=== PATIENT | female | born 1980 | race Hispanic/Latino ===

== ENCOUNTER 2021-01-11 12:29 | Emergency (ER) | payer BC ==
--- NOTE | 2021-01-11 15:24 | ER ---
Nurse's Notes [facility] Name: Marga Tovar Age: 40 yrs Sex: Female : 1980 Arrival Date: 01/11/2021 Time: 12:30 Bed DIS2 Private MD: Diagnosis: Acute upper respiratory infection, unspecified Presentation: 01/11 12:51 Chief complaint: Patient states: LOONEY, cough, body aches since 01/06. S.O. is covid ll1 positive. Would like to be checked. Took antibiotic for 5 days, feels better overall. Coronavirus screen: Client denies travel out of the [place] in the last 14 days. cough unrelated to allergies, diarrhea, headache, shaking with chills, Client presents with at least one sign or symptom that may indicate coronavirus-19. Standard/surgical mask placed on the client. Ebola Screen: Patient denies travel to an Ebola-affected area in the 21 days before illness onset. Initial Sepsis Screen: Does the patient meet any 2 criteria? No. Patient's initial sepsis screen is negative. Does the patient have a suspected source of infection? Yes: Productive cough/pneumonia. Risk Assessment: Do you want to hurt yourself or someone else? Patient reports no desire to harm self or others. Onset of symptoms was January 06, 2021. 12:51 Method Of Arrival: Ambulatory ll1 12:51 Acuity: CODY 4 ll1 Historical: - Allergies: 12:50 No Known Allergies; ll1 - PMHx: 12:50 None; ll1 - PSHx: 12:50 None; ll1 - Immunization history:: Flu vaccine is not up to date. - Social history:: Smoking status: Patient/guardian denies using tobacco, the patient reports quitting approximately 10 years ago. Screenin:38 Abuse screen: Denies threats or abuse. Nutritional screening: No deficits noted. vg1 Tuberculosis screening: No symptoms or risk factors identified. Fall Risk No fall in past 12 months (0 pts). No secondary diagnosis (0 pts). No IV (0 pts). Ambulatory Aid- None/Bed Rest/Nurse Assist (0 pts). Gait- Normal/Bed Rest/Wheelchair (0 pts) Mental Status- Oriented to own ability (0 pts). Total Gómez Fall Scale indicates No Risk (0-24 pts). Assessment: 14:35 General: Appears in no apparent distress. comfortable, Behavior is calm, cooperative. vg1 Pain: Denies pain. Neuro: Level of Consciousness is awake, alert, obeys commands, Oriented to person, place, time, situation. Cardiovascular: Patient's skin is warm and dry. Respiratory: Reports cough that is dry, Airway is patent Respiratory effort is even, unlabored, Breath sounds are clear bilaterally. GI: No signs and/or symptoms were reported involving the gastrointestinal system. : No signs and/or symptoms were reported regarding the genitourinary system. EENT: No signs and/or symptoms were reported regarding the EENT system. Derm: Skin is intact, is healthy with good turgor. Musculoskeletal: Circulation, motion, and sensation intact. Vital Signs: 12:51 BP 140 / 103; Pulse 75; Resp 17; Temp 97.0; Pulse Ox 100% ; Weight 58.51 kg; Height 5 ll1 ft. 4 in. (162.56 cm); Pain 0/10; 14:38 BP 143 / 99; Pulse 80; Resp 14; Pulse Ox 100% on R/A; vg1 12:51 Body Mass Index 22.14 (58.51 kg, 162.56 cm) ll1 ED Course: 12:30 Patient arrived in ED. bp1 12:49 Arm band placed on. ll1 12:54 Triage completed. ll1 14:14 Josh Mckeon NP is PHCP. pm1 14:14 Usama Gallegos MD is Attending Physician. pm1 14:15 Nanda Sutherland, RN is Primary Nurse. vg1 14:39 Patient has correct armband on for positive identification. Bed in low position. Call vg1 light in reach. Side rails up X 1. 15:13 COVID swab sent to lab. Flu and/or RSV swab sent to lab. Strep swab sent to lab. vg1 15:28 No provider procedures requiring assistance completed. Patient did not have IV access vg1 during this emergency room visit. Administered Medications: No medications were administered Outcome: 15:23 Discharge ordered by . pm1 15:28 Discharged to home ambulatory. vg1 15:28 Condition: stable 15:28 Discharge instructions given to patient, Instructed on discharge instructions, follow up and referral plans. Demonstrated understanding of instructions, follow-up care. 15:28 Patient left the ED. vg1 Signatures: Josh Mckeon, CERTIFIED MARINE MECHANIC CERTIFIED MARINE MECHANIC pm1 Nanda Sutherland, RN RN vg1 Leonidas Ortiz RN RN ll1 Yumi Landry bp1
--- NOTE | 2021-01-11 15:24 | EDPHYS ---
Physician Documentation [facility] Name: Marga Tovar Age: 40 yrs Sex: Female : 1980 Arrival Date: 01/11/2021 Time: 12:30 Bed DIS2 Private MD: ED Physician Usama Gallegos HPI: 01/11 14:40 This 40 yrs old Female presents to ER via Ambulatory with complaints of pm1 Headache, Cough, Body Ache. 14:40 The patient or guardian reports cough, headache, and body aches. Onset: The pm1 symptoms/episode began/occurred 6 day(s) ago. Severity of symptoms: in the emergency department the symptoms are unchanged. Associated signs and symptoms: Pertinent negatives: chest pain, diarrhea, sore throat, vomiting, shortness of breath. Patient was seen at [place] [facility] and tested for COVID without any symptoms. She got tested at that time because her significant other tested positive for COVID. Her flu and COVID test were negative. She was prescribed and completed a prescription of antibiotics for 5 days to prevent a possible infection. She is here today to get tested again for COVID because she started having symptoms of headache, cough, and body aches after testing negative for COVID while asymptomatic. Historical: - Allergies: 12:50 No Known Allergies; ll1 - PMHx: 12:50 None; ll1 - PSHx: 12:50 None; ll1 - Immunization history:: Flu vaccine is not up to date. - Social history:: Smoking status: Patient/guardian denies using tobacco, the patient reports quitting approximately 10 years ago. ROS: 14:40 Eyes: Negative for injury, pain, redness, and discharge, ENT: Negative for injury, pm1 pain, and discharge, Neck: Negative for injury, pain, and swelling, Cardiovascular: Negative for chest pain, palpitations, and edema. 14:40 Abdomen/GI: Negative for abdominal pain, nausea, vomiting, diarrhea, and constipation, Back: Negative for injury and pain, MS/Extremity: Negative for injury and deformity, Skin: Negative for injury, rash, and discoloration. 14:40 Constitutional: Positive for body aches, Negative for fever, poor PO intake. 14:40 Respiratory: Positive for cough, Negative for shortness of breath. 14:40 Neuro: Positive for headache, Negative for numbness, tingling. Exam: 14:40 Constitutional: This is a well developed, well nourished patient who is awake, alert, pm1 and in no acute distress. Head/Face: Normocephalic, atraumatic. 14:40 Neck: Trachea midline, no thyromegaly or masses palpated, and no cervical lymphadenopathy. Supple, full range of motion without nuchal rigidity, or vertebral point tenderness. No Meningismus. 14:40 Back: No spinal tenderness. No costovertebral tenderness. Full range of motion. Skin: Warm, dry with normal turgor. Normal color with no rashes, no lesions, and no evidence of cellulitis. MS/ Extremity: Pulses equal, no cyanosis. Neurovascular intact. Full, normal range of motion. 14:40 Eyes: Exam is negative for acute changes, Periorbital structures: appear normal, Pupils: no acute changes, Extraocular movements: intact throughout, Conjunctiva: normal, no acute changes, Sclera: no acute changes, icterus, is not appreciated, Lids and lashes: no acute changes. 14:40 ENT: External ear(s): are unremarkable, Ear canal(s): are normal, TM's: no acute changes, Mouth: Lips: normal, Oral mucosa: normal, pink and intact, moist, Posterior pharynx: Airway: no evidence of obstruction, Tonsils: are normal in appearance, no enlargement, no erythema, no exudate, no ulcerations, erythema, that is mild, peritonsillar mass, is not appreciated, pooling of secretions, is not appreciated. 14:40 Cardiovascular: Rate: normal, Rhythm: regular, Pulses: no pulse deficits are appreciated, Edema: is not appreciated. 14:40 Respiratory: Exam negative for acute changes, respiratory distress, shortness of breath, Breath sounds: are clear throughout. 14:40 Abdomen/GI: Inspection: abdomen appears normal, Palpation: abdomen is soft and non-tender. 14:40 Neuro: Orientation: is normal, Mentation: is normal, Motor: is normal, moves all fours, Sensation: is normal, no obvious gross deficits, Gait: is steady, at a normal pace, without difficulty. Vital Signs: 12:51 BP 140 / 103; Pulse 75; Resp 17; Temp 97.0; Pulse Ox 100% ; Weight 58.51 kg; Height 5 ll1 ft. 4 in. (162.56 cm); Pain 0/10; 14:38 BP 143 / 99; Pulse 80; Resp 14; Pulse Ox 100% on R/A; vg1 12:51 Body Mass Index 22.14 (58.51 kg, 162.56 cm) ll1 MDM: 14:38 Patient medically screened. pm1 15:23 Data reviewed: vital signs. Data interpreted: Pulse oximetry: on room air is 100 %. pm1 Interpretation: normal. Counseling: I had a detailed discussion with the patient and/or guardian regarding: the historical points, exam findings, and any diagnostic results supporting the discharge/admit diagnosis, the need for outpatient follow up, to return to the emergency department if symptoms worsen or persist or if there are any questions or concerns that arise at home. 01/11 14:39 Order name: Strep; Complete Time: 15:56 pm1 01/11 14:39 Order name: Droplet/Contact Precautions; Complete Time: 15:13 pm1 01/11 14:39 Order name: Labs collected and sent; Complete Time: 15:13 pm1 01/11 14:39 Order name: O2 Per Protocol; Complete Time: 15:13 pm1 Administered Medications: No medications were administered Disposition: 16:12 Co-signature as Attending Physician, Usama Gallegos MD. rn Disposition: 01/11/21 15:23 Discharged to Home. Impression: Acute upper respiratory infection, unspecified. - Condition is Stable. - Discharge Instructions: Antibiotic Resistance, Upper Respiratory Infection, Adult, COVID-19. - Medication Reconciliation Form, Thank You Letter, Antibiotic Education, Prescription Opioid Use form. - Follow up: Emergency Department; When: As needed; Reason: Worsening of condition. Follow up: Private Physician; When: 2 - 3 days; Reason: Recheck today's complaints, Continuance of care, Re-evaluation by your physician. - Problem is new. - Symptoms have improved. Signatures: Dispatcher [employer] EDMS Usama Gallegos MD MD rn Marinas, Patrick, DOCTOR NATUROPATHIC DOCTOR NATUROPATHIC pm1 Nanda Sutherland RN RN vg1 Leonidas Ortiz RN RN ll1 Corrections: (The following items were deleted from the chart) 15:28 15:23 01/11/2021 15:23 Discharged to Home. Impression: Acute upper respiratory vg1 infection, unspecified. Condition is Stable. Forms are Medication Reconciliation Form, Thank You Letter, Antibiotic Education, Prescription Opioid Use. Follow up: Emergency Department; When: As needed; Reason: Worsening of condition. Follow up: Private Physician; When: 2 - 3 days; Reason: Recheck today's complaints, Continuance of care, Re-evaluation by your physician. Problem is new. Symptoms have improved. pm1
[2021-01-11 15:33] VITALS: TEMP 97; O2SAT 100
[2021-01-11 15:35] VITALS: BP 143/99
[2021-01-11 16:36] LABS: SARS-COV-2 RT PCR POSITIVE (NEGATIVE)
== END 2021-01-11 15:28 | disposition home or self-care (01) ==
LOC: ER 12:29
DX: U07.1 COVID-19 (principal); J06.9 Acute upper respiratory infection, unspecified
CPT/HCPCS: 87070; 87081; 0240U; 99283